=== PATIENT | male | born 1965 | race Caucasian/White ===

== ENCOUNTER 2017-06-13 05:51 | Emergency (ER) | payer MEDICAID ==
[~2017-06-13] VITALS: Ht 162.6 cm; Wt 65.5 kg
[2017-06-13 05:58] VITALS: Ht 162.6 cm; Wt 65.5 kg
[2017-06-13] MEDS ORDERED: ONDANSETRON 4 MG INJ IV STA (06:18)
[2017-06-13] MEDS ORDERED: morphine 4 MG/ML VIAL IV STA (06:18)
[2017-06-13] MEDS ORDERED: DIPHENHYDRAMINE 50 MG INJ IM ONE (06:30)
[2017-06-13] MEDS ORDERED: METHYLPREDNISOLONE 125 MG INJ IM ONE (06:30)
[2017-06-13] MEDS ORDERED: BEN25 PO (07:11)
[2017-06-13] MEDS ORDERED: PRED20TA PO (07:11)
--- NOTE | 2017-06-13 07:15 | ERD ---
ER Documentation Chief Complaint Date/Time DATE: 06/13/17 TIME: 07:13 Chief Complaint facial swelling started this morning and rash on the body since last night HPI This 51-year-old male complains of an itchy rash on his buttocks and some swelling and itching of his face starting early this morning. History significant for taking some unspecified [id number] pill for his arthritis. He denies any shortness of breath, fevers. Denies any previous known allergies ROS All systems reviewed and are negative except as per history of present illness. Medications Home Meds Active Scripts Diphenhydramine Hcl* (Benadryl*) 25 Mg Cap, 25 MG PO Q6, #20 CAP Prov:KEREN PATEL MD 06/13/17 Prednisone* (Prednisone*) 20 Mg Tab, 40 MG PO DAILY for 4 Days, TAB Prov:KEREN PATEL MD 06/13/17 Allergies Allergies: Coded Allergies: No Known Allergy (Unverified , 06/13/17) PMhx/Soc Medical and Surgical Hx: pt denies Medical Hx, pt denies Surgical Hx Hx Alcohol Use: Yes ("A LITTLE") Hx Substance Use: No Hx Tobacco Use: No Physical Exam Vitals Vital Signs Date Time Temp Pulse Resp B/P Pulse Ox O2 Delivery O2 Flow Rate FiO2 06/13/17 05:58 97.9 70 20 172/99 99 Physical Exam Const: []Alert, not ill-appearing. Head: Atraumatic Eyes: Normal Conjunctiva ENT: Normal External Ears, Nose and Mouth.Slight redness and swelling superficially on the right side of the face. No warmth, induration or streaking.Airway patent. Neck: Full range of motion..~ No meningismus. Resp: Clear to auscultation bilaterally. No wheezing, rales or retractions. Cardio: Regular rate and rhythm, no murmurs Abd: Soft, non tender, non distended. Normal bowel sounds Skin: No petechiae or rashes. There is some we will type lesions on the buttocks. No induration, streaking or vesicles. Back: No midline or flank tenderness Ext: No cyanosis, or edema Neur: Awake and alert Psych: Normal Mood and Affect Results 24 hrs Current Medications Medications (Trade) Dose Ordered Sig/Mary Route PRN Reason Start Time Stop Time Status Last Admin Dose Admin Morphine Sulfate (morphine) 4 mg ONCE STAT IV 06/13/17 06:18 06/13/17 06:22 DC Ondansetron HCl (Zofran Inj) 4 mg ONCE STAT IV 06/13/17 06:18 06/13/17 06:22 DC Methylprednisolone Sodium Succinate (Solu-Medrol) 125 mg ONCE ONCE IM 06/13/17 06:30 06/13/17 06:31 DC 06/13/17 06:53 Diphenhydramine HCl (Benadryl) 50 mg ONCE ONCE IM 06/13/17 06:30 06/13/17 06:31 DC 06/13/17 06:59 Procedures/MDM Patient presents with signs and symptoms of an allergic reaction or urticarial type rash on the face and buttocks after taking some unspecified possibly herbal medication for arthritis. There is no evidence of anaphylaxis, signs of cellulitis, febrile illness, airway compromise. He was given Solu-Medrol 125 mg IM and Benadryl 50 mg IM here in the ED and will be treated with prednisone and Benadryl at home and further observation and return precautions and primary care follow-up. The patient was stable with no new complaints during the ER course. Clinically, there is no current evidence to suggest meningitis, sepsis, acute abdomen, pneumonia, acute coronary syndrome, pulmonary embolism, or any other emergent condition appearing to require further evaluation or hospitalization. The patient should certainly return for any new or worsening symptoms per the aftercare instructions. They should otherwise follow-up with her primary care doctor for reevaluation this week. Departure Diagnosis: Primary Impression: Allergic reaction Encounter type: initial encounter Qualified Code: T78.40XA - Allergic reaction, initial encounter Condition: Stable Patient Instructions: Allergic Reaction, Other (General) Additional Instructions: PROBABLAMENTE UN ALLERGIA. Cheque otro vez con danielle doctor primario en el proximo ochoa or regresa para mas o nueva simptomas. KEREN PATEL MD Jun 13, 2017 07:15
== END 2017-06-13 08:37 | disposition home or self-care (01) ==
LOC: FTE 05:51
DX: R60.0 Localized edema (principal); R21 Rash and other nonspecific skin eruption
CPT/HCPCS: 96372; J1200; J2930; Z7502

== ENCOUNTER 2017-10-08 17:34 | Emergency (ER) | END 2017-10-08 19:00 | disposition home or self-care (01) ==